=== PATIENT | female | born 1935 | race Caucasian/White ===

== ENCOUNTER 2016-12-26 19:59 | Emergency (ER) | payer MEDICARE, OTHER ==
[~2016-12-26 19:59] MED LIST: ANUS25SU PR; ASPI81TA82 PO; CALC-131 PO; DIGETAB PO; ESTR30V PV; FLOR250C PO; MINERALS; SELE200T PO; SYNT112T PO; VITA100017 PO; VITA20003; [UNRECOGNIZED DRUG - OTHER]
[2016-12-26 20:06] VITALS: BP 130/76; PULSE 88; RESP 20; TEMP 98.1
[2016-12-26] MEDS ORDERED: ASCO10003 PO (20:20)
[2016-12-26] MEDS ORDERED: ASPI1TAB69 PO (20:20)
[2016-12-26] MEDS ORDERED: HYDR2.5%T RECTAL (20:20)
[2016-12-26] MEDS ORDERED: SYNT112T PO (20:20)
--- NOTE | 2016-12-26 20:26 | PD ---
HPI Chief Complaint: Fall Time Seen by Provider: 20:23 Travel History International Travel<30 days: No Contact w/Intl Traveler<30days: No Traveled to known affect area: No History of Present Illness HPI 81-year-old female is complaining of pain in her right patella. She was carrying groceries around 5:30 this evening when she slipped and fell forward and landed on both of her knees. The left knee is bruised but not very painful. She is able to walk on it. It is quite uncomfortable for her to work and walk on her right knee. She did bump her elbow also and has some bruising but is able to use the arm well. She did not hit her head. She takes baby aspirin daily PFSH Past Medical History Hx Anticoagulant Therapy: Yes (ASA) Diminished Hearing: No Thyroid Disease: Yes Menopausal: Yes : 2 Para: 2 Ectopic : No Ovarian Cysts: No Dilation and Curettage (D&C): No Tubal Ligation: No Past Surgical History Appendectomy: Yes Section: No Hysterectomy: Yes Tonsillectomy: Yes Other Surgery: Yes (2 BREAST BIOPSIES, 1 ON EACH SIDE, BENIGN) Social History Alcohol Use: Yes (1-2 GLASSES ON WEEKENDS) Tobacco Use: No Substance Use: No Allergies-Medications (Allergen,Severity, Reaction): Coded Allergies: Sulfa (Verified Allergy, Severe, Hives, 12/26/16) Ciprofloxacin (Verified Allergy, Intermediate, dizzy, nausea, 12/26/16) Bentyl (Verified Adverse Reaction, Intermediate, 12/26/16) 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 Reported Meds & Prescriptions Reported Meds & Active Scripts Active Reported Synthroid (Levothyroxine Sodium) 112 Mcg Tab 112 Mcg PO DAILY Aspirin 81 Mg Tabdr 81 Mg PO DAILY Ascorbic Acid 1,000 Mg Tab 1,000 Mg PO DAILY Anusol-Hc Rectal (Hydrocortisone Rectal) 2.5% Cream 1 Applic RECTAL Q4-6H PRN Review of Systems General / Constitutional: No: Fever, Chills Eyes: No: Diploplia, Blurred Vision HENT: No: Headaches, Vertigo Cardiovascular: No: Chest Pain or Discomfort, Palpitations Respiratory: No: Cough Gastrointestinal: No: Nausea, Vomiting Genitourinary: No: Urgency Musculoskeletal: Positive: Myalgias, Arthralgias, Pain Skin: No Rash Neurologic: No: Weakness Physical Exam Narrative GENERAL: Well-developed female SKIN: Warm and dry. HEAD: Atraumatic. Normocephalic. EYES: Pupils equal and round. No scleral icterus. No injection or drainage. ENT: No nasal bleeding or discharge. Mucous membranes pink and moist. NECK: Trachea midline. No JVD. CARDIOVASCULAR: Regular rate and rhythm. No murmur appreciated. RESPIRATORY: No accessory muscle use. Clear to auscultation. Breath sounds equal bilaterally. GASTROINTESTINAL: Abdomen soft, non-tender, nondistended. Hepatic and splenic margins not palpable. MUSCULOSKELETAL: No obvious deformities. No clubbing. No cyanosis. No edema. There is some ecchymosis over the proximal tibia. Does not appear tender in this area. The right knee there is a hematoma around the patella. The skin is intact. The area is quite swollen. No obvious instability. There is a small abrasion over the anterior knee NEUROLOGICAL: Awake and alert. No obvious cranial nerve deficits. Motor grossly within normal limits. Normal speech. PSYCHIATRIC: Appropriate mood and affect; insight and judgment normal. Data Data Last Documented VS Vital Signs Date Time Temp Pulse Resp B/P Pulse Ox O2 Delivery O2 Flow Rate FiO2 12/26/16 20:06 98.1 88 20 130/76 Orders Knee, Complete (4vws) (12/26/16 20:23) Acetamin-Hydrocod 325-5 Mg (Tully 5-325 (12/26/16 20:45) MDM Medical Decision Making Medical Screen Exam Complete: Yes Emergency Medical Condition: Yes Medical Record Reviewed: Yes Differential Diagnosis Differential includes contusion, fracture Narrative Course X-ray shows a non-displaced transverse fracture through the middle of the patella Diagnosis Primary Impression: Fracture, patella Qualified Code: S82.034A - Closed nondisplaced transverse fracture of right patella, initial encounter Additional Instructions: apply ice every 2 hours while awake for 2 days, call Dr Garcia for follow up appointment Scripts Hydrocodone-Acetaminophen (Lortab)5-325 Mg Tab1 Tab PO Q4H PRN (PAIN) #20 TAB Ref 0 Prov:Milton Haddad MD 12/26/16 Disposition: 01 DISCHARGE HOME Condition: Stable Milton Haddad MD Dec 26, 2016 20:26
[2016-12-26] MEDS ORDERED: ACETAMINOPHEN/HYDROcodone 325 MG/5 MG TAB PO ONE (20:45)
[2016-12-26] MEDS ORDERED: HYDR-3533 PO (21:03)
--- NOTE | 2016-12-26 21:30 | RADHPO ---
EXAM DATE/TIME: 12/26/2016 20:41 [facility] COMPARISON: No previous studies available for comparison. INDICATIONS : Twisted right knee this evening MEDICAL HISTORY : None. SURGICAL HISTORY : None. ENCOUNTER: Initial ACUITY: 1 day PAIN SCORE: 6/10 LOCATION: Right knee FINDINGS: There is a fracture through the posterior mid patella, best seen on the lateral view. Horizontal candi ure of the fracture is seen on one of the oblique views. There is a moderate-sized knee effusion wit h distention of the suprapatellar bursa. The femur and tibia are grossly intact. CONCLUSION: Horizontal fracture through the patella with moderate size knee effusion. J Carlos Escobar MD on December 26, 2016 at 21:27 Board Certified Radiologist. This report was verified electronically.
[2017-01-19] MEDS ORDERED: SYNT112T PO (10:29)
[2017-03-15] MEDS ORDERED: FISH OIL (11:18)
[2017-03-15] MEDS ORDERED: probiotic (11:19)
[2017-04-12] MEDS ORDERED: HYDR2.5%T RECTAL (15:08)
[2017-04-14] MEDS ORDERED: ANUS25SU RECTAL (13:30)
== END 2016-12-26 21:42 | disposition home or self-care (01) ==
LOC: PHED 19:59
DX: S82.034A Nondisplaced transverse fracture of right patella, initial encounter for closed fracture (principal); W01.0XXA Fall on same level from slipping, tripping and stumbling without subsequent striking against object, initial encounter; Y93.89 Activity, other specified
CPT/HCPCS: 73564; 99284; E0113; L1830

== ENCOUNTER → 2017-03-16 | Outpatient (CLI) | payer MEDICARE, OTHER ==
[~2017-03-16] MED LIST changes: -ANUS25SU PR; +ANUS25SU RECTAL; +ASCO10003 PO; +ASPI1TAB69 PO; -ASPI81TA82 PO; -CALC-131 PO; -DIGETAB PO; -ESTR30V PV; +FISH OIL; -FLOR250C PO; +HYDR2.5%T RECTAL; -MINERALS; -SELE200T PO; -VITA100017 PO; -VITA20003; -[UNRECOGNIZED DRUG - OTHER]; +probiotic
[2017-03-16 13:02] LABS: AUTOMATED NEUTROPHIL # 2.3 TH/MM3 (1.8-7.7); BASOPHIL # 0.1 TH/MM3 (0-0.2); BASOPHIL % 1.6 % (0.0-2.0); EOSINOPHIL # 0.2 TH/MM3 (0-0.4); EOSINOPHIL % 3.7 % (0.0-4.0); HEMATOCRIT 38.5 % (35.0-46.0); HEMO FLAGS DIFF FINAL; LYMPH % 37.9 % (9.0-44.0); LYMPHOCYTE # 1.9 TH/MM3 (1.0-4.8); MEAN CELL VOLUME 89.4 FL (80.0-100.0); MEAN CORPUSCULAR HEMOGLOBIN 29.2 PG (27.0-34.0); MEAN CORPUSCULAR HGB CONC 32.7 % (32.0-36.0); MONO % 10.5 % (0.0-8.0); NEUT % 46.3 % (16.0-70.0); PLATELET COUNT 278 TH/MM3 (150-450)
[2017-03-16 13:25] LABS: ALKALINE PHOSPHATASE 61 U/L (45-117); ALT (GPT) 26 U/L (10-53); ANION GAP 7 MEQ/L (5-15); AST (GOT) 23 U/L (15-37); BICARBONATE 28.5 MEQ/L (21.0-32.0); BLOOD UREA NITROGEN 14 MG/DL (7-18); CHLORIDE 103 MEQ/L (98-107); FREE T3 2.34 PG/ML (2.18-3.98); FREE T4 1.25 NG/DL (0.76-1.46); GLOMERULAR FILTRATION RATE 69 ML/MIN (>89); GLUCOSE,FASTING 92 MG/DL (74-99); POTASSIUM 4.4 MEQ/L (3.5-5.1); SODIUM (NA) 138 MEQ/L (136-145); TOTAL BILIRUBIN ADULT 0.4 MG/DL (0.2-1.0)
== END ==
LOC: PLAB 07:43
PROVIDERS: ATTEND Family Medicine
DX: I49.3 Ventricular premature depolarization (principal); E03.9 Hypothyroidism, unspecified; I95.1 Orthostatic hypotension
CPT/HCPCS: 36415; 80053; 84439; 84443; 84481; 85025

== ENCOUNTER → 2017-09-21 | Outpatient (CLI) | payer MEDICARE, OTHER ==
[~2017-09-21] MED LIST changes: -ASCO10003 PO; -ASPI1TAB69 PO; +ASPI81TA81 PO; -HYDR2.5%T RECTAL; +Vitamin C; +ZITHTAB PO; +adrenal support; +selenium; +vitamin D
[2017-09-21 14:19] LABS: FREE T3 2.89 PG/ML (2.18-3.98); FREE T4 1.2 NG/DL (0.76-1.46)
== END ==
LOC: PLAB 08:01
PROVIDERS: ATTEND Family Medicine
DX: E03.8 Other specified hypothyroidism (principal)
CPT/HCPCS: 36415; 84439; 84443; 84481

== ENCOUNTER 2017-10-14 09:36 | Emergency (ER) | payer MEDICARE, OTHER ==
[~2017-10-14] VITALS: Ht 168.9 cm; Wt 60.9 kg
[2017-10-14 09:44] VITALS: BP 152/72; PULSE 80; RESP 16; TEMP 98.4; O2SAT 95
--- NOTE | 2017-10-14 09:55 | PD ---
HPI Chief Complaint: Injury Time Seen by Provider: 09:48 Travel History International Travel<30 days: Yes Contact w/Intl Traveler<30days: Yes Name of Country Traveled to: [place] Traveled to known affect area: No History of Present Illness HPI The patient is a 82-year-old female who presents to the emergency department for left hand pain. The patient was on a ladder last night when a box fell out of the attic and struck her on the left aspect of the hand, near the thumb, resulting in some swelling. The patient states she had significant pain last night with decreased range of motion, does note her pain has improved this morning. She does state there is an area of swelling of the posterior aspect the left hand with some pain along the thumb and base of the left thumb. She is right-hand dominant. She denies any numbness, tingling, or weakness of the left hand. Symptoms are mild, exacerbated after box fell and hit the left hand, and mostly self alleviating. PFSH Past Medical History Hx Anticoagulant Therapy: Yes (ASA 81 MG DAILY) Anemia: Yes (EARLY 20'S) Diminished Hearing: No Shingles: Yes Thyroid Disease: Yes (HYPOTHYROIDISM) Tetanus Vaccination: Unknown ?: Not Menopausal: Yes : 2 Para: 2 Ectopic : No Ovarian Cysts: No Dilation and Curettage (D&C): No Tubal Ligation: No Past Surgical History Appendectomy: Yes Section: No Hysterectomy: Yes Tonsillectomy: Yes Other Surgery: Yes (2 BREAST BIOPSIES, 1 ON EACH SIDE, BENIGN) Social History Alcohol Use: Yes (1-2 GLASSES ON WEEKENDS) Tobacco Use: No Substance Use: No Allergies-Medications (Allergen,Severity, Reaction): Coded Allergies: Sulfa (Sulfonamide Antibiotics) (Unverified Allergy, Severe, Hives, ) ciprofloxacin (Unverified Allergy, Intermediate, dizzy, nausea, 10/14/17) dicyclomine (Unverified Adverse Reaction, Intermediate, 10/14/17) 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 Reported Meds & Prescriptions Reported Meds & Active Scripts Active [selenium] [vitamin D] 1000 units daily [Vitamin C] 1,000 Mg Aspir-81 (Aspirin) 81 Mg Tabdr 81 Tab PO DAILY [probiotic] [fish oil capsule] Synthroid (Levothyroxine Sodium) 112 Mcg Tab 112 Mcg PO DAILY Review of Systems Musculoskeletal: Positive: Limited ROM, Edema, Pain Skin: Positive Other (swelling of the left hand) Neurologic: No: Paresthesia, Sensory Disturbance 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 SKIN: Focused skin assessment warm/dry. HEAD: Atraumatic. Normocephalic. EYES: No injection or drainage. MUSCULOSKELETAL: The left hand does reveal a hematoma over the extensor surface of the left hand over the first and second metacarpal. The patient is able fully flex and extend the left elbow, and the left wrist. She is able to supinate and pronate the left forearm without difficulty. There is no tenderness in the anatomic snuffbox. Intrinsic hand muscles are intact. Mild tenderness of the hematoma. Positive left radial pulse. NEUROLOGICAL: Awake and alert. No obvious cranial nerve deficits. Motor grossly within normal limits. Normal speech. Sensation is intact over the radial, median, and ulnar distribution of the left hand. PSYCHIATRIC: Appropriate mood and affect; insight and judgment normal. Data Data Last Documented VS Vital Signs Date Time Temp Pulse Resp B/P (MAP) Pulse Ox O2 Delivery O2 Flow Rate FiO2 10/14/17 09:44 98.4 80 16 152/72 (98) 95 Orders Orders Hand, Complete ([id number]) (10/14/17 ) [facility] Medical Decision Making Medical Screen Exam Complete: Yes Emergency Medical Condition: Yes Medical Record Reviewed: Yes Interpretation(s) X-ray of the left hand reveals no acute fracture or malalignment. Osteopenia and osteoarthritic changes. Differential Diagnosis Differential diagnosis includes fracture, dislocation, hematoma, contusion, sprain, strain Narrative Course X-ray of the left hand was obtained. X-ray of the left hand was negative. The patient is advised to ice, elevate, and activity as tolerated for the left hand. She will be provided a copy of her x-ray results at discharge. Tylenol and/or Motrin as needed for pain. Diagnosis Primary Impression: Contusion of left hand Qualified Codes: S60.222A - Contusion of left hand, initial encounter Patient Instructions: General Instructions Additional Instructions: Please provide the patient copy of her x-ray results at discharge. Follow-up with your primary physician. Activity as tolerated. Elevate and ice the left hand. Tylenol and/or Motrin as needed for pain. Med/Other Pt SpecificInfo: No Change to Meds Disposition: 01 DISCHARGE HOME Condition: Stable Mayito Kelly MD Oct 14, 2017 09:55
--- NOTE | 2017-10-14 10:17 | RADRPT ---
EXAM DATE/TIME: 10/14/2017 09:57 [facility] COMPARISON: No previous studies available for comparison. INDICATIONS : Left 1st and 2nd digit pain, box fell on hand last night. MEDICAL HISTORY : None. SURGICAL HISTORY : None. ENCOUNTER: Initial ACUITY: 2 days PAIN SCORE: 3/10 LOCATION: Left 1st and 2nd digit FINDINGS: AP, lateral and oblique views of the left hand were obtained and demonstrate diffuse osteopenia and m ild osteoarthritic change. This is greatest involving the first metacarpal carpal joint. There is no acute fracture or malalignment. No focal soft tissue abnormality is identified radiographically. CONCLUSION: 1. No acute fracture or malalignment. 2. Osteopenia and osteoarthritic change. Juan Manuel Malagon MD on October 14, 2017 at 10:15 Board Certified Radiologist. This report was verified electronically.
== END 2017-10-14 10:36 | disposition home or self-care (01) ==
LOC: PHED 09:36
DX: S60.222A Contusion of left hand, initial encounter (principal); W20.8XXA Other cause of strike by thrown, projected or falling object, initial encounter; Y92.008 Other place in unspecified non-institutional (private) residence as the place of occurrence of the external cause
CPT/HCPCS: 73130; 99283

== ENCOUNTER → 2018-01-10 | Outpatient (CLI) | payer MEDICARE, OTHER ==
[~2018-01-10] MED LIST changes: -ANUS25SU RECTAL; +LIDO2SOL11 PO; +VALA1TAB PO; -ZITHTAB PO
[2018-01-10 16:33] LABS: AUTOMATED NEUTROPHIL # 3.6 TH/MM3 (1.8-7.7); BASOPHIL # 0.1 TH/MM3 (0-0.2); BASOPHIL % 1.2 % (0.0-2.0); EOSINOPHIL # 0.2 TH/MM3 (0-0.4); EOSINOPHIL % 2.4 % (0.0-4.0); HEMATOCRIT 36.7 % (35.0-46.0); HEMOGLOBIN 12.5 GM/DL (11.6-15.3); LYMPH % 32.5 % (9.0-44.0); LYMPHOCYTE # 2.2 TH/MM3 (1.0-4.8); MEAN CELL VOLUME 89.6 FL (80.0-100.0); MEAN CORPUSCULAR HEMOGLOBIN 30.5 PG (27.0-34.0); MEAN CORPUSCULAR HGB CONC 34.1 % (32.0-36.0); MEAN PLATELET VOLUME 7.4 FL (7.0-11.0); MONO % 9.3 % (0.0-8.0); MONOCYTE # 0.6 TH/MM3 (0-0.9); NEUT % 54.6 % (16.0-70.0); PLATELET COUNT 303 TH/MM3 (150-450); RED CELL DISTRIBUTION WIDTH 12.5 % (11.6-17.2); WHITE BLOOD COUNT 6.7 TH/MM3 (4.0-11.0)
[2018-01-10 17:13] LABS: ALBUMIN 3.8 GM/DL (3.4-5.0); ALT (GPT) 24 U/L (10-53); AST (GOT) 18 U/L (15-37); BICARBONATE 27.9 MEQ/L (21.0-32.0); BLOOD UREA NITROGEN 10 MG/DL (7-18); CALCIUM 8.8 MG/DL (8.5-10.1); CHLORIDE 97 MEQ/L (98-107); CREATININE 0.64 MG/DL (0.50-1.00); GLOMERULAR FILTRATION RATE 89 ML/MIN (>89); GLUCOSE,RANDOM 86 MG/DL (74-106); SODIUM (NA) 130 MEQ/L (136-145)
[2018-01-10 17:16] LABS: ALKALINE PHOSPHATASE 66 U/L (45-117); TOTAL BILIRUBIN ADULT 0.3 MG/DL (0.2-1.0); TOTAL PROTEIN 7.3 GM/DL (6.4-8.2)
== END ==
LOC: PLAB 13:55
PROVIDERS: ATTEND Family Medicine
DX: R10.9 Unspecified abdominal pain (principal)
CPT/HCPCS: 36415; 80053; 85025